=== PATIENT | male | born 1965 | race Caucasian/White ===

== ENCOUNTER 2024-02-26 06:21 | Inpatient (IN) | payer SELFPAY ==
[~2024-02-26] VITALS: Ht 182.9 cm; Wt 131.6 kg
[2024-02-26] MEDS ORDERED: Nitroglycerin 1 INCH/GM PKT TOP ONE (06:40)
[2024-02-26] MEDS ORDERED: METO50ER PO (06:42)
[2024-02-26 07:06] LABS: BASOPHILS ABSOLUTE AUTO 0.05 K/mm3 (0.00-0.23); BASOPHILS PERCENT AUTO 0 % (0-2); EOSINOPHILS ABSOLUTE AUTO 0.03 K/mm3 (0.00-0.68); EOSINOPHILS PERCENT AUTO 0 % (0-6); Hematocrit 53.2 % (37.0-53.0); Hemoglobin 16.4 g/dL (13.5-17.5); IMMATURE GRAN ABSOLUTE AUTO 0.09 K/mm3 (0.00-0.10); IMMATURE GRAN PERCENT AUTO 1 % (0-1); LYMPHOCYTES ABSOLUTE AUTO 2.21 K/mm3 (0.84-5.20); LYMPHOCYTES PERCENT AUTO 18 % (21-46); MONOCYTES ABSOLUTE AUTO 0.82 K/mm3 (0.16-1.47); MONOCYTES PERCENT AUTO 7 % (4-13); Mean Corpuscular HGB 26.3 pg (26.0-34.0); Mean Corpuscular HGB Conc 30.8 g/dL (31.5-36.5); Mean Corpuscular Volume 85 fL (80-100); Mean Platelet Volume 10.4 fL (9.1-12.4); NEUTROPHILS ABSOLUTE AUTO 9.33 K/mm3 (1.96-9.15); NEUTROPHILS PERCENT AUTO 75 % (41-73); Platelet Count 325 K/mm3 (150-400); RDW Coefficient Variation 14.2 % (11.7-14.2); RDW Standard Deviation 44.2 fL (35.1-46.3); Red Blood Cell Count 6.23 M/mm3 (4.30-5.90); White Blood Cell Count 12.53 K/mm3 (4.00-11.30)
[2024-02-26 07:29] LABS: Albumin, Blood 3.1 g/dL (3.4-5.0); Albumin/Globulin Ratio 0.9 (0.8-1.8); Bilirubin, Total 1.2 mg/dL (0.1-1.0); Bun/Creatinine Ratio 20.1 (12.0-20.0); Calcium, Blood 9.3 mg/dL (8.5-10.1); Creatinine, Blood 1.49 mg/dL (0.60-1.20); Globulin, Blood 3.6 g/dL (2.2-4.0); Potassium, Blood 5.7 mmol/L (3.5-5.5); Total Protein, Blood 6.7 g/dL (6.4-8.2)
[2024-02-26] MEDS ORDERED: Furosemide 10 MG/ML 4ML Vial IV ONE (08:25)
[2024-02-26 09:56] LABS: CHOL/HDL RATIO 4.4; Cholesterol 115 mg/dL (50-200); HDL Cholesterol 26 mg/dL (>39); LDL/HDL RATIO 2.7; Low Density Lipoprotein Chol 71 mg/dL (0-110); Triglycerides 91 mg/dL (30-160); Very Low Density Lipoprot Chol 18 mg/dL (6-32)
[2024-02-26 11:12] VITALS: BP 134/98
[2024-02-26 15:14] VITALS: BP 134/70
[2024-02-26 16:11] LABS: Bun/Creatinine Ratio 21.9 (12.0-20.0); Creatinine, Blood 1.51 mg/dL (0.60-1.20); Potassium, Blood 4.8 mmol/L (3.5-5.5)
[2024-02-26] MEDS ORDERED: Furosemide 10 MG / ML 2ML Vial IV SCH (18:00)
--- NOTE | 2024-02-26 18:50 | NUR ---
1110- PT TO MEDICAL FLOOR IN STABLE CONDITION.
--- NOTE | 2024-02-26 19:10 | NUR ---
SUMMARY- PT [id number]. IND IN ROOM. NO ACUTE EVENTS THIS SHIFT. PT ON RA. NO COMPLAINTS OF PAIN.
[2024-02-26 19:31] VITALS: BP 147/81
[2024-02-27 04:33] LABS: BASOPHILS ABSOLUTE AUTO 0.07 K/mm3 (0.00-0.23); BASOPHILS PERCENT AUTO 1 % (0-2); EOSINOPHILS ABSOLUTE AUTO 0.19 K/mm3 (0.00-0.68); EOSINOPHILS PERCENT AUTO 2 % (0-6); Hematocrit 46.8 % (37.0-53.0); Hemoglobin 15.2 g/dL (13.5-17.5); IMMATURE GRAN ABSOLUTE AUTO 0.05 K/mm3 (0.00-0.10); IMMATURE GRAN PERCENT AUTO 0 % (0-1); LYMPHOCYTES ABSOLUTE AUTO 2.81 K/mm3 (0.84-5.20); LYMPHOCYTES PERCENT AUTO 22 % (21-46); MONOCYTES ABSOLUTE AUTO 1.02 K/mm3 (0.16-1.47); MONOCYTES PERCENT AUTO 8 % (4-13); Mean Corpuscular HGB 26.7 pg (26.0-34.0); Mean Corpuscular HGB Conc 32.5 g/dL (31.5-36.5); Mean Corpuscular Volume 82 fL (80-100); Mean Platelet Volume 10.5 fL (9.1-12.4); NEUTROPHILS ABSOLUTE AUTO 8.52 K/mm3 (1.96-9.15); NEUTROPHILS PERCENT AUTO 67 % (41-73); Platelet Count 312 K/mm3 (150-400); RDW Coefficient Variation 14.2 % (11.7-14.2); RDW Standard Deviation 41.4 fL (35.1-46.3); White Blood Cell Count 12.66 K/mm3 (4.00-11.30)
[2024-02-27 04:43] VITALS: BP 148/94
[2024-02-27 05:07] LABS: Albumin/Globulin Ratio 0.9 (0.8-1.8); Bilirubin, Total 0.7 mg/dL (0.1-1.0); Bun/Creatinine Ratio 24.7 (12.0-20.0); Calcium, Blood 8.5 mg/dL (8.5-10.1); Creatinine, Blood 1.5 mg/dL (0.60-1.20); Globulin, Blood 3.4 g/dL (2.2-4.0); Potassium, Blood 4.1 mmol/L (3.5-5.5); Total Protein, Blood 6.4 g/dL (6.4-8.2)
--- NOTE | 2024-02-27 06:26 | NUR ---
Patient alert and oriented, ambulating in room and to restroom independently. Patient has noted abdominal spasms causing significant discomfort. Telemetry in place, demonstrating sinus rhythm/tach 60-100's, also appearing to flip to second degree heart block, type one with a rate of 30-40's, lasting <[address] Marks with hospitalist team made aware, PRN EKG order placed.
[2024-02-27 07:18] VITALS: BP 134/69
[2024-02-27 08:33] LABS: Free Thyroxine 0.97 ng/dL (0.70-1.60); Triiodothyronine, Free 1.88 pg/mL (2.18-3.98)
[2024-02-27] MEDS ORDERED: Enoxaparin 40 MG/0.4 ML SYR SC SCH (09:00)
[2024-02-27] MEDS ORDERED: Losartan Potassium 25 MG Tab PO SCH (11:00)
[2024-02-27 11:22] VITALS: BP 129/85
[2024-02-27 14:47] VITALS: BP 117/62
[2024-02-27 17:49] VITALS: BP 141/75
[2024-02-27] MEDS ORDERED: Furosemide 10 MG/ML 4ML Vial IV SCH (18:00)
--- NOTE | 2024-02-27 18:13 | NUR ---
SHIFT SUMMARY PT A&OX4, VSS, AMB IND, TOLERATING PO, VOIDING, AND DENIED PAIN. PT GIVEN DIURETICS PER EMAR. PT C/O CRAMPING AND WAS PROVIDED W/ HEATING PAD. CRAMPING IMPROVED. NO OTHER ACUTE CHANGES. CALL LIGHT WITHIN REACH AND PT ABLE TO MAKE NEEDS KNOWN.
[2024-02-27 19:27] VITALS: BP 149/66
[2024-02-28 04:02] VITALS: BP 136/79
[2024-02-28 05:19] LABS: Hematocrit 48.3 % (37.0-53.0); Hemoglobin 15.3 g/dL (13.5-17.5); Mean Corpuscular HGB 26.3 pg (26.0-34.0); Mean Corpuscular HGB Conc 31.7 g/dL (31.5-36.5); Mean Corpuscular Volume 83 fL (80-100); Mean Platelet Volume 10.3 fL (9.1-12.4); Platelet Count 280 K/mm3 (150-400); RDW Coefficient Variation 14.1 % (11.7-14.2); RDW Standard Deviation 42.5 fL (35.1-46.3); Red Blood Cell Count 5.82 M/mm3 (4.30-5.90)
[2024-02-28 06:08] LABS: Bun/Creatinine Ratio 20.3 (12.0-20.0); Calcium, Blood 8.3 mg/dL (8.5-10.1); Creatinine, Blood 1.33 mg/dL (0.60-1.20); Potassium, Blood 3.5 mmol/L (3.5-5.5)
--- NOTE | 2024-02-28 07:51 | NUR ---
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 AT ONE POINT PT DECIDED TO UNPLUG HIMSELF FROM IT DESPITE PREVIOUS EDUCATION NOT TO DO SO. HE WAS PLUGGED BACK IN AND RE-EDUCATED.
--- NOTE | 2024-02-28 07:54 | NUR ---
RECORDS REQUEST REQUEST MADE TO [facility] FOR PTS MEDICAL RECORDS YESTERDAY. ANTICIPATING THEY WILL SEND HIS RECORDS VIA FAX.
[2024-02-28 08:36] VITALS: BP 159/85
[2024-02-28] MEDS ORDERED: Potassium Chloride 20 MEQ TabCR PO ONE (08:50)
[2024-02-28] MEDS ORDERED: Metoprolol Succinate 25 MG TABCR PO SCH (09:00)
[2024-02-28] MEDS ORDERED: Insulin Glargine-Yfgn 100 Unit/mL 3 ML SYR SC SCH (09:00)
[2024-02-28] MEDS ORDERED: Insulin Human Lispro 100 Units/ML 3ML Syringe SC SCH (11:30)
[2024-02-28 15:31] VITALS: BP 130/75
[2024-02-28 16:41] LABS: Bun/Creatinine Ratio 21.1 (12.0-20.0); Calcium, Blood 8.2 mg/dL (8.5-10.1); Creatinine, Blood 1.33 mg/dL (0.60-1.20); Potassium, Blood 3.9 mmol/L (3.5-5.5)
--- NOTE | 2024-02-28 17:46 | NUR ---
PT SUMMARY NO ACUTE EVENTS FOR THE SHIFT. VITALS HRR SR 70'S, SBP 130'S, SATS ABOVE 95% ON RA, AFEBRILE. PT DENIES CHEST PAIN/PRESSURE. PT REPORTS IMPROVEMENT ON BREATHING UPON EXERTION. PT PLACED ON FLUID RESTRICTION 1500MLS, IV LASIX SWITCHED TO 60 MG IV BID, PT WAS EDUCATED ABOUT PLAN OF CARE AND WAS AGREEABLE PT HAS BEEN INDEPENDENT IN THE ROOM HAD A SHOWER TODAY. USES URINAL FOR VOIDING VOIDED MORE THAN 2L FOR THE SHIFT. PT HAS BEEN RESTING FOR THE SHIFT, CALLS APPROPRIATELY. WILL REPORT TO ONCOMING SHIFT
[2024-02-28] MEDS ORDERED: Furosemide 10 MG / ML 2ML Vial IV SCH (18:00)
[2024-02-28 20:46] VITALS: BP 134/89
[2024-02-28] MEDS ORDERED: Apixaban 5 MG Tab PO SCH (21:00)
[2024-02-29 03:25] VITALS: BP 130/76
[2024-02-29 05:12] LABS: BASOPHILS ABSOLUTE AUTO 0.04 K/mm3 (0.00-0.23); BASOPHILS PERCENT AUTO 1 % (0-2); EOSINOPHILS ABSOLUTE AUTO 0.23 K/mm3 (0.00-0.68); EOSINOPHILS PERCENT AUTO 3 % (0-6); Hematocrit 46.2 % (37.0-53.0); Hemoglobin 14.7 g/dL (13.5-17.5); IMMATURE GRAN ABSOLUTE AUTO 0.05 K/mm3 (0.00-0.10); IMMATURE GRAN PERCENT AUTO 1 % (0-1); LYMPHOCYTES ABSOLUTE AUTO 1.98 K/mm3 (0.84-5.20); LYMPHOCYTES PERCENT AUTO 23 % (21-46); MONOCYTES ABSOLUTE AUTO 0.92 K/mm3 (0.16-1.47); MONOCYTES PERCENT AUTO 11 % (4-13); Mean Corpuscular HGB 26.1 pg (26.0-34.0); Mean Corpuscular HGB Conc 31.8 g/dL (31.5-36.5); Mean Corpuscular Volume 82 fL (80-100); Mean Platelet Volume 10.8 fL (9.1-12.4); NEUTROPHILS ABSOLUTE AUTO 5.32 K/mm3 (1.96-9.15); NEUTROPHILS PERCENT AUTO 62 % (41-73); Platelet Count 291 K/mm3 (150-400); RDW Coefficient Variation 14.1 % (11.7-14.2); RDW Standard Deviation 41.3 fL (35.1-46.3); Red Blood Cell Count 5.63 M/mm3 (4.30-5.90); White Blood Cell Count 8.54 K/mm3 (4.00-11.30)
[2024-02-29 05:37] LABS: Albumin, Blood 2.8 g/dL (3.4-5.0); Albumin/Globulin Ratio 0.8 (0.8-1.8); Bilirubin, Total 0.7 mg/dL (0.1-1.0); Bun/Creatinine Ratio 20.9 (12.0-20.0); Calcium, Blood 8.5 mg/dL (8.5-10.1); Creatinine, Blood 1.29 mg/dL (0.60-1.20); Globulin, Blood 3.5 g/dL (2.2-4.0); Potassium, Blood 3.6 mmol/L (3.5-5.5); Total Protein, Blood 6.3 g/dL (6.4-8.2)
--- NOTE | 2024-02-29 06:15 | NUR ---
SHIFT SUMMARY: Pt is admitted for heart failure and is a full code. Is alert and able to make needs known. Denies pain or discomfort when asked. Telly reports sinus in the 70s with PACs. ADLs have been independent.
[2024-02-29 07:34] VITALS: BP 151/72
[2024-02-29] MEDS ORDERED: Losartan Potassium 50 MG Tab PO SCH (09:00)
[2024-02-29] MEDS ORDERED: Spironolactone 12.5 MG TAB PO SCH (09:00)
[2024-02-29] MEDS ORDERED: Empagliflozin 10 MG TAB PO SCH (09:00)
[2024-02-29] MEDS ORDERED: ELIQUIS5 M2 PO (14:20)
[2024-02-29] MEDS ORDERED: JARDIANCE10 MG PO (14:21)
[2024-02-29] MEDS ORDERED: FURO20 PO (14:22)
[2024-02-29] MEDS ORDERED: SPIR25 PO (14:23)
[2024-02-29] MEDS ORDERED: LOSA50 PO (14:23)
--- NOTE | 2024-02-29 15:25 | NUR ---
PT DICHARGED AT 1445 WITH ALL PAPERWORK REVIEWED AND EDUCATIONAL MATERIAL SENT [facility] PT. PT VERBALIZED UNDERSTANDING THE IMPORTANCE OF SETTING UP WITH A PCP. PT STATED HE WOULD GET A PCP IN [place]. PT COLLECTED ALL PERSONAL BELONGING AND WAS ESCORTED OUT TO N ENTRANCE TO WAIT FOR SON TO TRANSPORT HIM HOME. NO DISTRESS NOTED.
== END 2024-02-29 14:49 | disposition home or self-care (01) | DRG 291 ==
LOC: ER 06:21 → MEDS 09:07
PROVIDERS: Emergency Medicine; Family Medicine; ADMIT Hospitalist
DX: I13.0 Hypertensive heart and chronic kidney disease with heart failure and stage 1 through stage 4 chronic kidney disease, or unspecified chronic kidney disease (principal); I50.23 Acute on chronic systolic (congestive) heart failure; J96.01 Acute respiratory failure with hypoxia; E87.21 Acute metabolic acidosis; I48.92 Unspecified atrial flutter; N17.9 Acute kidney failure, unspecified; R65.10 Systemic inflammatory response syndrome (SIRS) of non-infectious origin without acute organ dysfunction; R18.8 Other ascites; I44.1 Atrioventricular block, second degree; N18.2 Chronic kidney disease, stage 2 (mild); E11.22 Type 2 diabetes mellitus with diabetic chronic kidney disease; K74.60 Unspecified cirrhosis of liver; E87.5 Hyperkalemia; F10.10 Alcohol abuse, uncomplicated; I25.10 Atherosclerotic heart disease of native coronary artery without angina pectoris; F15.10 Other stimulant abuse, uncomplicated; Z91.148 Patient's other noncompliance with medication regimen for other reason; Z79.899 Other long term (current) drug therapy
CPT/HCPCS: 36415; 71045; 76705; 80048; 80053; 80061; 82947; 83036; 83880; 84439; 84443; 84481; 84484; 85025; 85027; 93005; 93010; 93306; 94760; 94762; 96374; 99285-25; A9270; J1650; J1815; J1940